=== PATIENT | female | born 1985 | race Caucasian/White ===

== ENCOUNTER 2019-03-29 04:45 | Emergency (ER) | payer MEDICAID ==
[~2019-03-29] VITALS: Ht 177.8 cm; Wt 72.7 kg
[2019-03-29 04:52] VITALS: Ht 177.8 cm; Wt 72.7 kg
[2019-03-29] MEDS ORDERED: NAPROSYN500 MG PO (05:49)
[2019-03-29 06:05] VITALS: BP 114/73
== END 2019-03-29 06:05 | disposition home or self-care (01) ==
LOC: D.ER 04:45
DX: S96.912A Strain of unspecified muscle and tendon at ankle and foot level, left foot, initial encounter (principal); X58.XXXA Exposure to other specified factors, initial encounter; Y93.89 Activity, other specified; Y92.89 Other specified places as the place of occurrence of the external cause

== ENCOUNTER 2019-08-01 00:17 | Emergency (ER) | payer MEDICAID ==
[~2019-08-01] VITALS: Ht 177.8 cm; Wt 68.2 kg
[~2019-08-01 00:17] MED LIST: NAPROSYN500 MG PO
[2019-08-01 00:20] VITALS: Ht 177.8 cm; Wt 68.2 kg
[2019-08-01 00:54] LABS: BASOPHILS 0.4 % (0-2); EOSINOPHILS 1.2 % (0-7); HEMATOCRIT 44.1 % (36.0-48.0); IMMATURE GRANULOCYTES 0.1 % (0-5); LYMPHOCYTES 31.3 % (15-50); MCH 30.2 pg (26.0-34.0); MCV 88.9 fL (80.0-100.0); MEAN PLATELET VOLUME 9.3 fL (7.4-10.4); MONOCYTES 6.7 % (2-11); NEUTROPHILS 60.3 % (40-80); PLATELET COUNT 296 10x3/uL (130-400); RBC 4.96 10x6/uL (4.00-5.40); WBC 8.5 10x3/uL (4.8-10.8)
[2019-08-01 01:05] LABS: CALC OSMOLALITY 279 mosm/kg (275-300); CALCIUM 9.2 mg/dL (8.5-10.1); CARBON DIOXIDE 22.5 mmol/L (21.0-32.0); CHLORIDE - SERUM 105 mmol/L (98-107); CREATININE - SERUM 0.6 mg/dL (0.6-1.3); GLUCOSE 97 mg/dL (74-106); INR 1.06 (0.85-1.17); POTASSIUM - SERUM 3.8 mmol/L (3.5-5.1); PROTIME 13.8 SECONDS (11.6-15.0); SODIUM 141 mmol/L (136-145); UREA NITROGEN 11 mg/dL (7-18); eGFR NON AFRICAN AMERICAN > 90 mL/min (90-120)
[2019-08-01 01:06] LABS: APTT 29.7 SECONDS (22.8-39.4)
[2019-08-01 01:25] LABS: ALBUMIN 4.1 g/dL (3.4-5.0); ALKALINE PHOSPHATASE 84 U/L (46-116); ALT (SGPT) 21 U/L (10-68); CKMB 0.7 U/L (0.0-3.6); CREATINE KINASE 47 UL (21-215); MAGNESIUM - SERUM 1.8 mg/dL (1.8-2.4); PROTEIN - SERUM 7.5 g/dL (6.4-8.2); TROPONIN-I < 0.017 ng/mL (0.000-0.060)
[2019-08-01 03:17] VITALS: BP 123/85
== END 2019-08-01 03:17 | disposition home or self-care (01) ==
LOC: D.ER 00:17
PROVIDERS: Emergency Medicine
DX: F41.9 Anxiety disorder, unspecified (principal)

== ENCOUNTER 2020-02-22 04:20 | Emergency (ER) | payer OTHER ==
[~2020-02-22] VITALS: Ht 177.8 cm; Wt 75.0 kg
[2020-02-22 04:31] VITALS: Ht 177.8 cm; Wt 75.0 kg
[2020-02-22 04:49] LABS: BACTERIA MANY /hpf (NEGATIVE); BILIRUBIN NEGATIVE (NEGATIVE); GLUCOSE NEGATIVE (NEGATIVE); KETONE NEGATIVE (NEGATIVE); NITRITE POSITIVE (NEGATIVE); UROBILINOGEN NORMAL (NORMAL); WHITE CELLS - URINE >50 /hpf (NEGATIVE)
[2020-02-22 04:50] LABS: HCG URINE NEGATIVE (NEGATIVE)
[2020-02-22 04:59] LABS: BASOPHILS 0.3 % (0-2); EOSINOPHILS 0.8 % (0-7); HEMATOCRIT 41.5 % (36.0-48.0); HEMOGLOBIN 13.4 g/dL (12-16); IMMATURE GRANULOCYTES 0.2 % (0-5); LYMPHOCYTES 24.8 % (15-50); MCH 30.2 pg (26.0-34.0); MCHC 32.3 g/dL (31.0-37.0); MCV 93.7 fL (80.0-100.0); MEAN PLATELET VOLUME 9.3 fL (7.4-10.4); MONOCYTES 10.5 % (2-11); NEUTROPHILS 63.4 % (40-80); PLATELET COUNT 212 10x3/uL (130-400); RBC 4.43 10x6/uL (4.00-5.40); RDW 12.8 % (11.5-14.5); WBC 6.5 10x3/uL (4.8-10.8)
[2020-02-22 05:10] LABS: CALC OSMOLALITY 277 mosm/kg (275-300); CALCIUM 8.9 mg/dL (8.5-10.1); CARBON DIOXIDE 30.7 mmol/L (21.0-32.0); CHLORIDE - SERUM 104 mmol/L (98-107); CREATININE - SERUM 0.5 mg/dL (0.6-1.3); GLUCOSE 92 mg/dL (74-106); POTASSIUM - SERUM 3.4 mmol/L (3.5-5.1); SODIUM 140 mmol/L (136-145); UREA NITROGEN 9 mg/dL (7-18); eGFR NON AFRICAN AMERICAN > 90 mL/min (90-120)
[2020-02-22 05:22] LABS: ALBUMIN 3.2 g/dL (3.4-5.0); ALKALINE PHOSPHATASE 79 U/L (30-120); ALT (SGPT) 16 U/L (10-68); BILIRUBIN - TOTAL 0.13 mg/dL (0.2-1.3); C-REACTIVE PROTEIN 12.3 mg/dL (0.0-0.9); LIPASE 85 U/L (73-393); PRO BNP 23 pg/mL (0-125)
[2020-02-22] MEDS ORDERED: OMNICEF300 MG PO (05:53)
[2020-02-22 06:07] VITALS: BP 116/77
== END 2020-02-22 06:07 | disposition home or self-care (01) ==
LOC: D.ER 04:20
PROVIDERS: Family Medicine
DX: N12 Tubulo-interstitial nephritis, not specified as acute or chronic (principal); R06.02 Shortness of breath; J02.9 Acute pharyngitis, unspecified; Z72.0 Tobacco use

== ENCOUNTER 2020-02-27 02:32 | Emergency (ER) | payer OTHER ==
[~2020-02-27] VITALS: Ht 177.8 cm; Wt 72.7 kg
[~2020-02-27 02:32] MED LIST changes: +OMNICEF300 MG PO
[2020-02-27 02:39] VITALS: Ht 177.8 cm; Wt 72.7 kg
[2020-02-27 03:03] LABS: BILIRUBIN NEGATIVE (NEGATIVE); GLUCOSE NEGATIVE (NEGATIVE); HCG URINE NEGATIVE (NEGATIVE); KETONE NEGATIVE (NEGATIVE); NITRITE NEGATIVE (NEGATIVE); UROBILINOGEN NORMAL (NORMAL)
[2020-02-27 03:14] LABS: BASOPHILS 0.7 % (0-2); EOSINOPHILS 2.1 % (0-7); HEMATOCRIT 42.4 % (36.0-48.0); HEMOGLOBIN 13.8 g/dL (12-16); IMMATURE GRANULOCYTES 0.2 % (0-5); LYMPHOCYTES 44.7 % (15-50); MCH 30.2 pg (26.0-34.0); MCHC 32.5 g/dL (31.0-37.0); MCV 92.8 fL (80.0-100.0); MONOCYTES 7.6 % (2-11); NEUTROPHILS 44.7 % (40-80); RBC 4.57 10x6/uL (4.00-5.40); RDW 12.8 % (11.5-14.5); WBC 6.1 10x3/uL (4.8-10.8)
[2020-02-27 03:15] LABS: PLATELET COUNT 319 10x3/uL (130-400)
[2020-02-27 03:22] LABS: CALC OSMOLALITY 276 mosm/kg (275-300); CALCIUM 9.1 mg/dL (8.5-10.1); CARBON DIOXIDE 31.2 mmol/L (21.0-32.0); CHLORIDE - SERUM 104 mmol/L (98-107); CREATININE - SERUM 0.7 mg/dL (0.6-1.3); POTASSIUM - SERUM 3.7 mmol/L (3.5-5.1); SODIUM 140 mmol/L (136-145); UREA NITROGEN 12 mg/dL (7-18); eGFR NON AFRICAN AMERICAN > 90 mL/min (90-120)
[2020-02-27 03:23] LABS: GLUCOSE 60 mg/dL (74-106)
[2020-02-27 03:38] LABS: ALBUMIN 3.6 g/dL (3.4-5.0); ALKALINE PHOSPHATASE 78 U/L (30-120); ALT (SGPT) 24 U/L (10-68); BILIRUBIN - TOTAL 0.14 mg/dL (0.2-1.3); LIPASE 120 U/L (73-393); PROTEIN - SERUM 7.5 g/dL (6.4-8.2)
[2020-02-27 04:36] LABS: UDS - AMPHET POSITIVE QUAL (NEGATIVE); UDS - BARB NEGATIVE QUAL (NEGATIVE); UDS - BENZO NEGATIVE QUAL (NEGATIVE); UDS - COCAINE NEGATIVE QUAL (NEGATIVE); UDS - OPIATE NEGATIVE QUAL (NEGATIVE); UDS - PCP NEGATIVE QUAL (NEGATIVE); UDS - THC NEGATIVE QUAL (NEGATIVE)
[2020-02-27 05:12] VITALS: BP 129/89
== END 2020-02-27 04:49 | disposition home or self-care (01) ==
LOC: D.ER 02:32
PROVIDERS: Family Medicine
DX: N12 Tubulo-interstitial nephritis, not specified as acute or chronic (principal); R10.9 Unspecified abdominal pain